=== PATIENT | female | born 1965 | race Caucasian/White ===

== ENCOUNTER → 2017-02-25 | Day surgery (SDC) | payer OTHER ==
[~2017-02-25] VITALS: Ht 167.6 cm; Wt 89.4 kg
[~2017-02-25] MED LIST: 0.9% Sodium Chloride 1,000 ML IV SCH; ACET-2605 PO; CITA20TA11 PO; FEXO180T85 PO; OXYC5CAP4 PO; Sodium Chloride LOK Flush 10 mL Syringe IV PRN; fentaNYL-PF 50 mCg/mL 2 mL Inj IVPUSH PRN
[2017-02-25 09:50] VITALS: BP 131/95; PULSE 83; O2SAT 100
[2017-02-25 10:49] VITALS: BP 136/77; PULSE 79; RESP 15; O2SAT 99
[2017-02-25 10:58] VITALS: BP 127/73; PULSE 74; RESP 15; O2SAT 99
--- NOTE | 2017-02-25 11:06 | ENDO ---
[address] [address] ENDOSCOPY PROCEDURE PATIENT: LAURE MAKI : 1965 MR#: [id number] ADMIT: 02/25/2017 JOB ID: [id number] DATE: 02/25/2017 PRIMARY PROVIDER: Chanelle Ta PROCEDURE: Colonoscopy. INDICATIONS: A 51-year-old female who reports for colon cancer screening. Her sister had a recent colonoscopy and unknown histology polyp or polyps were removed. EQUIPMENT: PCF H 190 DL. SEDATION: 1. 9 mg Versed. 2. 150 mcg fentanyl. COMPLICATIONS: None identified. BOWEL PREPARATION: Excellent. PROCEDURAL INFORMATION: After the risks and benefits were explained, written and verbal informed consent was obtained. The patient was brought into the endoscopy suite and placed into the left lateral decubitus position. Sedation was achieved as above. A digital rectal examination was accomplished. No significant pathology appreciated. The scope was introduced into the rectum and advanced under direct visualization to the level of the cecum, as identified by the appendiceal orifice and ileocecal valve. The scope was slowly withdrawn to carefully examine the mucosa for any defects or lesions. Retroflexed views were avoided in the rectum. Multiple direct views were made through the dentate line for exclusion of pathology. The colon was decompressed. The scope removed from the patient who tolerated the procedure well. FINDINGS: No significant polyps, mass lesions or inflammatory features identified throughout. There was some mild diverticula in the sigmoid colon. No other significant pathology appreciated throughout. ENDOSCOPIC DIAGNOSIS: Mild sigmoid diverticulosis. RECOMMENDATIONS: Repeat colonoscopy in 5-10 years. If the patient's sister's colon polyps were of a more advanced nature such as tubulovillous histology or adenoma with high-grade dysplasia, then I would err on the side of an earlier examination. However, if her sister's polyps were either hyperplastic histology or a very small adenoma, it would be reasonable to delay 10 years until the next examination.
[2017-02-25 11:08] VITALS: BP 130/73; PULSE 74; RESP 15; O2SAT 99
== END | disposition home or self-care (01) ==
LOC: END 02:15
PROVIDERS: ATTEND Internal Medicine Gastroenterology
DX: Z12.11 Encounter for screening for malignant neoplasm of colon (principal); K57.30 Diverticulosis of large intestine without perforation or abscess without bleeding
CPT/HCPCS: 99153; G0121; G0500; J2250; J3010; J7030